=== PATIENT | male | born 1995 | race Caucasian/White ===

== ENCOUNTER 2024-01-17 02:50 | Emergency (ER) | payer SELFPAY ==
[2024-01-17] VITALS (8 sets, daily range): BP systolic 111–131; BP diastolic 64–80; PULSE 110–146; RESP 16–18; TEMP 37.7; O2SAT 94–98; BMI 24.6
[2024-01-17] MEDS: SODIUM CHLORIDE 0.9% 1,000 ML 1000 ML IV (03:20)
[2024-01-17] MEDS: ONDANSETRON 4 MG ODT SL (03:20)
[2024-01-17 03:23] LABS: Add Manual Diff / Slide Review NO; Basophils Absolute Auto 100 /uL (0-100); Basophils Percent Auto 0.5 % (0-2); Eosinophils Absolute Auto 100 /uL (0-450); Eosinophils Percent Auto 0.5 % (2-4); Hemoglobin 17.3 g/dL (13.5-17.5); Lymphocytes Absolute Auto 300 /uL (1100-4500); Mean Corpuscular HGB Conc 33.3 % (30-36); Mean Corpuscular Hemoglobin 28.3 PG (26-34); Mean Corpuscular Volume 84.9 fL (80-100); Monocytes Absolute Auto 500 /uL (0-900); Monocytes Percent Auto 4.8 % (3-14); Neutrophils Absolute Auto 9600 /uL (1500-7000); Neutrophils Percent Auto 91.2 % (50-75); Platelet Count 194 X10^3/uL (150-400); Red Blood Cell Count 6.13 X10^6/uL (4.5-5.9); Red Cell Distribution Width 13.2 % (11.6-14.8); White Blood Cell Count 10.5 X10^3/uL (4.5-11.0)
--- NOTE | 2024-01-17 03:26 | DI.CT.S_ITS ---
PROCEDURE: CT ABDOMEN PELVIS W CON INDICATIONS: LLQ abd pain TECHNIQUE: After the administration of intravenous contrast, axial sections acquired from the lung bases to the pubic symphysis. Coronal and sagittal reformats were performed. For radiation dose reduction, the following was used: automated exposure control, adjustment of mA and/or kV according to patient size. COMPARISON: None. FINDINGS: Image quality: Diagnostic. Lower Chest: No significant findings. ABDOMEN: Liver: 1.6 x 1.3 cm hypodense area is noted in posterior segment of right hepatic lobe near hepatic dome series 2, image 12 and measures approximately 55 Hounsfield unit in density. No other hepatic lesion is seen. Gallbladder: No radiopaque gallstones or wall thickening. Biliary ducts: No biliary dilation. Pancreas: No ductal dilation. Spleen: Size is within normal limits. Adrenal Glands: No adrenal nodules. Kidneys and Ureters: No hydronephrosis. No solid mass. No complex renal cystic lesion which requires follow up. Stomach and Bowel: There is no bowel obstruction. Mild small bowel wall thickening and enhancement is seen without significant pericolonic fat stranding. Appendix is visualized in right lower quadrant and is normal in overall size. Questionable mild appendiceal wall thickening is noted without significant periappendiceal fat stranding. No abscess collection. Peritoneum: No abnormal intraperitoneal fluid. No free air. Ventral Wall: No significant ventral hernia. Abdominal Nodes: No retroperitoneal or mesenteric adenopathy by size criteria. Vessels: Aorta and inferior vena cava are normal in size. PELVIS: Pelvic Organs: Unremarkable. Bladder: No bladder wall thickening, accounting for underdistention. Pelvic Nodes: No enlarged lymph nodes. Miscellaneous: No inguinal hernias are seen. Bones: No aggressive osseous abnormality. IMPRESSION: 1. Mild diffuse small bowel wall thickening and enhancement concerning for low-grade enteritis. No evidence of bowel obstruction. No abscess collection. No free fluid or free air. 2. Questionable borderline appendiceal wall thickening with normal overall appendix size. Very early acute appendicitis cannot be entirely excluded, suggest clinical correlation and follow-up. 3. 1.6 x 1.3 cm hypodense lesion involving right hepatic lobe as above, and is indeterminate in nature. Further workup via outpatient CT or MRI without and with contrast can be done if indicated. No significant discrepancies from preliminary reading. Dictated by: Claudio Michelle M.D. on 01/17/2024 at 7:56 Approved by: Claudio Michelle M.D. on 01/17/2024 at 8:01
--- NOTE | 2024-01-17 03:26 | ED.GENADULT ---
HPI - General Adult General Chief complaint: Abdominal Pain Stated complaint: v/d cant keep anything down, abd/chest pain Time Seen by Provider: 01/17/24 03:03 Source: patient Mode of arrival: Ambulatory Limitations: no limitations History of Present Illness HPI narrative: Patient is a 20-year-old male who is here for evaluation of abdominal pain, nausea vomiting and diarrhea. He states the abdominal pain has actually been present for the past several days/weeks that has been progressively worsening. Vomiting started over the past couple days. It is now the point to where he can not hold anything down. Is having blood in the stool. Left-sided abdominal pain. No recent travel. No recent antibiotics. No fevers. Related Data Previous Rx's Medication Instructions Recorded ondansetron 4 mg disintegrating 4 mg PO Q6H PRN nausea and 01/17/24 tablet vomiting #10 tabs Allergies Allergy/AdvReac Type Severity Reaction Status Date / Time No Known Drug Allergies Allergy Verified 01/17/24 03:10 Review of Systems Review of Systems ROS Unobtainable: All systems reviewed & are unremarkable except as noted in HPI and below Patient History Social History Smoking Status: Never smoker Smoking Status: Never smoker Substance Use Type: former substance user and marijuana Exam Initial Vital Signs Initial Vital Signs: Vital Signs Temperature 99.9 F H 01/17/24 03:10 Pulse Rate 146 H 01/17/24 03:10 Respiratory Rate 18 01/17/24 03:10 Blood Pressure 127/80 01/17/24 03:10 Pulse Oximetry 96 01/17/24 03:10 Oxygen Delivery Method Room Air 01/17/24 03:10 Const General: cooperative and No ill appearing [facility] Head: normal to inspection and normocephalic Resp Effort & Inspection: normal respiratory effort Auscultation: clear to auscultation bilaterally Cardio Rate: regular rate Rhythm: regular rhythm GI Inspection: normal to inspection and non-distended Palpation: No firm, No guarding and tender Back/Spine/Pelvis Back: No CVA tenderness Neuro General: patient alert, patient awake and moves all extremities Extrem General: capillary refill normal Course Orders Ordered: ED Orders 01/17/24 03:15 Complete Blood Count AUTO DIFF Stat Comprehensive Metabolic Panel Stat Lipase Stat 01/17/24 03:26 CT abdomen pelvis w con Stat 01/17/24 03:35 GI Panel (Film Array) Stat Discontinued Medications Sodium Chloride (Normal Saline 0.9%) 1,000 mls @ 1,000 mls/hr IV BOLUS ONE Stop: 01/17/24 04:02 Last Infusion: 01/17/24 04:19 Dose: Infused Documented By: Admin: 01/17/24 03:20 Dose: 1,000 mls/hr Documented By: Ketorolac Tromethamine (Ketorolac 30 Mg/Ml Vial) 30 mg IV NOW ONE Stop: 01/17/24 04:20 Last Admin: 01/17/24 04:22 Dose: 30 mg Documented By: Ondansetron HCl (Ondansetron 4 Mg/2 Ml Inj) 4 mg IV NOW ONE Stop: 01/17/24 03:04 Last Admin: 01/17/24 03:45 Dose: 4 mg Documented By: Ondansetron HCl (Ondansetron 4 Mg Odt) 4 mg SL NOW ONE Stop: 01/17/24 03:06 Last Admin: 01/17/24 03:20 Dose: 4 mg Documented By: Ondansetron HCl (Ondansetron 4 Mg Odt Prepack) 1 bottle MISC DIRECTED ONE Stop: 01/17/24 05:03 Vital Signs Vital signs: Vital Signs - 8 hr 01/17/24 03:10 01/17/24 03:16 01/17/24 03:16 Temperature 99.9 F H Pulse Rate 146 H 129 H Respiratory Rate 18 Blood Pressure 127/80 121/79 Pulse Oximetry 96 96 Oxygen Delivery Method Room Air Room Air 01/17/24 03:35 01/17/24 03:35 01/17/24 04:07 Temperature Pulse Rate 128 H 116 H Respiratory Rate Blood Pressure 131/66 Pulse Oximetry 96 Oxygen Delivery Method Room Air 01/17/24 04:08 01/17/24 04:08 01/17/24 04:30 Temperature Pulse Rate 112 H 119 H Respiratory Rate Blood Pressure 120/67 Pulse Oximetry 95 95 Oxygen Delivery Method Room Air Room Air 01/17/24 05:00 Temperature Pulse Rate 115 H Respiratory Rate Blood Pressure Pulse Oximetry 94 Oxygen Delivery Method Room Air Medical Decision Making Lab Data Lab results reviewed: Yes I reviewed the patient's lab results. 01/17/24 03:15 01/17/24 03:15 Labs: Lab Results 01/17/24 01/17/24 Range/Units 03:15 03:35 WBC 10.5 (4.5-11.0) X10^3/uL RBC 6.13 H (4.5-5.9) X10^6/uL Hgb 17.3 (13.5-17.5) g/dL Hct 52.0 (41-53) % MCV 84.9 (80-100) fL MCH 28.3 (26-34) PG MCHC 33.3 (30-36) % RDW 13.2 (11.6-14.8) % Plt Count 194 (150-400) X10^3/uL Neut % (Auto) 91.2 H (50-75) % Lymph % (Auto) 3.0 L (25-40) % [place] % (Auto) 4.8 (3-14) % Eos % (Auto) 0.5 L (2-4) % Baso % (Auto) 0.5 (0-2) % Neut # (Auto) 9600 H (9134-2304) /uL Lymph # (Auto) 300 L (9590-0402) /uL [place] # (Auto) 500 (0-900) /uL Eos # (Auto) 100 (0-450) /uL Baso # (Auto) 100 (0-100) /uL Sodium 141 (137-145) mmol/L Potassium 3.7 (3.4-5.1) mmol/L Chloride 104 (98-107) mmol/L Carbon Dioxide 20 L (22-32) mmol/L BUN 15 (9-20) mg/dL Creatinine 1.19 (0.66-1.25) mg/dL Estimated GFR > 60 (>60) mL/min BUN/Creatinine Ratio 12.6 (6-22) Glucose 121 H (70-100) mg/dL Calcium 9.6 (8.4-10.2) mg/dL Total Bilirubin 1.3 (0.2-1.3) mg/dL AST 28 (17-59) IU/L ALT 18 (<50) IU/L Alkaline Phosphatase 69 (38-126) U/L Total Protein 8.8 H (6.3-8.2) g/dL Albumin 5.3 H (3.5-5.0) g/dL Globulin 3.5 (1.7-4.1) g/dL Albumin/Globulin Ratio 1.5 (1.0-2.8) Lipase 63 (23-300) U/L Stl C. cayetanensis PCR Not detected (Not Detect) Stool Rotavirus (PCR) Not detected (Not Detect) Stool Adenovirus (PCR) Not detected (Not Detect) Stool Astrovirus (PCR) Not detected (Not Detect) Stool Cryptosporidium PCR Not detected (Not Detect) Stl E.coli Shiga Tox PCR Not detected (Not Detect) St Sh/Enteroin Ecoli PCR Not detected (Not Detect) Stl Enterotoxigenic E PCR Not detected (Not Detect) Stool EPEC (PCR) Not detected (Not Detect) Stl E. histolytica PCR Not detected (Not Detect) Stool Giardia Lamblia PCR Not detected (Not Detect) Stool Sapovirus (PCR) Not detected (Not Detect) Stl P. shigelloides PCR Not detected (Not Detect) St Y.enterocolitica PCR Not detected (Not Detect) Stool Vibrio (PCR) Not detected (Not Detect) Stl Vibrio cholerae PCR Not detected (Not Detect) Stl Enteroaggr Ecoli PCR Not detected (Not Detect) Stl Norovirus GI/GII PCR Detected (Not Detect) Campylobacter (PCR) Not detected (Not Detect) C. difficile Tox (PCR) Not detected (Not Detect) Salmonella (PCR) Not detected (Not Detect) Imaging Data CT scan - abdomen/pelvis: Radiologist's Impression: Probable mild enteritis Mild distention of the jejunal loops maybe focal ileus. Mechanical obstructions less likely. Slight prominence of the retrocecal appendix is probably incidental however early acute appendicitis being clinically consider close follow-up recommended MDM Narrative Medical decision making narrative: Patient is positive for norovirus. This does fit his clinical presentation. After medications patient's heart rate improved and he was able to tolerate oral intake. No indication for surgical consultation. No indication for admission to the hospital. No indication for antibiotics. Sent home with nausea medication. Discussed return. He expressed understanding and agreement. Discharge Plan Departure Patient Disposition: Home Clinical Impression: Norovirus Instructions: DI for Norovirus Infection Activity Restrictions/Additional Instructions: Be sure that you are increasing your fluid intake by drinking small amounts frequently. Recommend a bland diet that you can advanced as tolerated. Return to the emergency department for new symptoms Prescriptions: New ondansetron 4 mg tablet,disintegrating 4 mg PO Q6H PRN (Reason: nausea and vomiting) Qty: 10 0RF Referrals: Shoshana You MD [Primary Care Provider] - Stand Alone Forms: Patient Portal/API
[2024-01-17 03:45] LABS: Alanine Aminotransferase 18 IU/L (<50); Albumin 5.3 g/dL (3.5-5.0); Albumin Globulin Ratio 1.5 (1.0-2.8); Alkaline Phosphatase 69 U/L (38-126); Aspartate Aminotransferase 28 IU/L (17-59); BUN Creatinine Ratio 12.6 (6-22); Bilirubin Total 1.3 mg/dL (0.2-1.3); Blood Urea Nitrogen 15 mg/dL (9-20); Calcium 9.6 mg/dL (8.4-10.2); Carbon Dioxide 20 mmol/L (22-32); Chloride 104 mmol/L (98-107); Estimated Glomerular Filt Rate > 60 mL/min (>60); Globulin 3.5 g/dL (1.7-4.1); Glucose 121 mg/dL (70-100); HEMOLYSIS < 15 (0-50); Lipase 63 U/L (23-300); Potassium 3.7 mmol/L (3.4-5.1); Sodium 141 mmol/L (137-145); Total Protein 8.8 g/dL (6.3-8.2)
[2024-01-17] MEDS: ONDANSETRON 4 MG/2 ML INJ IV (03:45)
[2024-01-17] MEDS: KETOROLAC 30 MG/ML VIAL IV (04:22)
[2024-01-17 04:56] LABS: Adenovirus F 40/41 Not Detected (Not Detect); Astrovirus Not Detected (Not Detect); Campylobacter Not Detected (Not Detect); Clostridium difficile toxin AB Not Detected (Not Detect); Cryptosporidium Not Detected (Not Detect); Cyclospora cayetanensis Not Detected (Not Detect); Entamoeba histolytica Not Detected (Not Detect); Enteroaggregative E.coli Not Detected (Not Detect); Enteropathogenic E.coli Not Detected (Not Detect); Enterotoxigenic E.coli It/st Not Detected (Not Detect); Giardia lamblia Not Detected (Not Detect); Norovirus GI/GII Detected (Not Detect); Plesiomonsa shigelloides Not Detected (Not Detect); Rotavirus A Not Detected (Not Detect); Salmonella Not Detected (Not Detect); Sapovirus Not Detected (Not Detect); Shiga-like toxin-prod E.coli Not Detected (Not Detect); Shigella/Enteroinvasive E.coli Not Detected (Not Detect); Vibrio Not Detected (Not Detect); Vibrio cholerae Not Detected (Not Detect); Yersinia enterocolitica Not Detected (Not Detect)
[2024-01-17] MEDS: ONDANSETRON 4 MG ODT PREPACK 1 BOTTLE MISC (05:28)
--- NOTE | 2024-01-17 06:33 | PC.NURSE ---
Pt was discharged from department, immediately ran to restroom, pt heard vomiting. pt in bathroom for about 15 min. then ambulated out of department.
== END 2024-01-17 06:38 | disposition home or self-care (01) ==
PROVIDERS: Emergency Provider Emergency Medicine; PCP Family Medicine
DX: A08.11 Acute gastroenteropathy due to Norwalk agent (principal)
CPT/HCPCS: 36415; 74177; 80053; 83690; 85025; 87507; 96361; 96374; 96375; 99284; J1885; J2405; Q9967